=== PATIENT | female | born 1980 | race Caucasian/White ===

== ENCOUNTER 2024-12-09 09:46 | Emergency (ER) | payer BC, SELFPAY ==
[2024-12-09 09:47] VITALS: BP 127/86; PULSE 73; RESP 16; TEMP 36; O2SAT 100; BMI 30.2
--- NOTE | 2024-12-09 10:26 | CT_ITS ---
PROCEDURE: ABDOMEN/PELVIS WITHOUT CONT 12/09/2024 REASON FOR EXAM: KIDNEY STONE Right-sided flank pain. TECHNIQUE: ABDOMEN/PELVIS WITHOUT CONT Noncontrast technique limits evaluation of the abdominal and pelvic viscera. Coronal and Sagittal reconstruction series were provided. One or more dose reduction techniques were used (e.g., Automated exposure control, adjustment of the mA and/or kV according to patient size, use of iterative reconstruction technique). RADIATION DOSE SUMMARY: CTDlvol: 9.41 mGy DLP: 453.87 mGycm COMPARISON: None FINDINGS: Lung bases: Mild dependent atelectasis Liver: Normal size. No obvious mass. Gallbladder: Unremarkable Spleen: Normal size. Pancreas: Normal size. No surrounding inflammation. Adrenals: Adrenal glands are unremarkable. Kidneys: Tiny nonobstructive right intrarenal calculi. No evidence of hydronephrosis. No obstructive uropathy is seen at this time. Bladder: Unremarkable Reproductive Organs: Unremarkable Bowel: Unremarkable Appendix: Unremarkable Lymph nodes: Unremarkable. Vasculature: The abdominal aorta and IVC contours are normal. Noncontrast technique limits evaluation. Peritoneum / Retroperitoneum: Unremarkable Bones: Unremarkable CT/Abdomen/Pelvis without Cont IMPRESSION: Tiny nonobstructive right intrarenal calculi. No obstructive uropathy is seen at this time. Reading Location: [id number]
--- NOTE | 2024-12-09 10:56 | EX.ED.DYSGE1 ---
HPI History of Present Illness Chief Complaint: Flank Pain Narrative Narrative: 44-year-old female who denies significant past medical history presents with 1 to 2 weeks of right flank pain. She thought maybe she had pulled a muscle and has been taking NSAIDs and meloxicam without relief. She states she gets pain in the right flank and right back if she sneezes or tries to breathe too deeply. She denies any DVT or PE risk factors. No fevers or chills, no cough. No exacerbating or alleviating factors. It is not worse with food. She describes it as both dull and achy and sharp and stabbing at times. It has been relatively constant over the last few weeks, with periods of increasing pain, especially at night. She and her state that they went to urgent care today and were told to come to the emergency department for further evaluation with concern for pulmonary embolism or gallbladder pathology, or kidney stone. Patient denies any dysuria or hematuria, no dark urine, no problems with bowel movements. PFSH PFS Home Medications ?Medication ?Instructions ?Recorded ?Last Taken ?Type ascorbic acid (vitamin C) 500 mg 500 mg PO DAILY 12/09/24 12/08/24 History tablet,extended release (C-500) cetirizine 10 mg tablet (24Hour 10 mg PO DAILY PRN allergy symptoms 12/09/24 12/08/24 History Allergy) cyclobenzaprine 10 mg tablet 10 mg PO TID PRN Muscle Spasm #20 12/09/24 Unknown Rx TABLETS ibuprofen 200 mg tablet (Advil) 400 mg PO Q6H PRN fever or pain 12/09/24 12/08/24 History meloxicam 7.5 mg tablet 7.5 mg PO DAILY 12/09/24 12/08/24 History amiwzmlw-nrj-qlrnc acid 200 1 tab PO DAILY 12/09/24 12/08/24 History mcg-collagen, hydrolyzed 25 mg chew tablet (Women's Multivitamin with Collagen) naproxen 500 mg tablet (Naprosyn) 500 mg PO BID PRN pain #20 tabs 12/09/24 Unknown Rx sumatriptan succinate 25 mg tablet 25 mg PO Q2H PRN migraine headache 12/09/24 Unknown History (Imitrex) Allergy/AdvReac Type Severity Reaction Status Date / Time No Known Allergies Allergy Verified 12/09/24 09:48 Social History Smoking Status: Never smoker ROS ROS ED ROS Narrative Review of systems positive for right-sided flank pain. Worse with sneezing or very deep breathing. No DVT or PE risk factors. No chest pain or shortness of breath. No nausea or vomiting, no dysuria or hematuria, no problems with bowel movements. EXAM Physical Exam Narrative Exam Narrative: Afebrile. Vital signs noted. Nontoxic-appearing. Cardiovascular examination feels a regular rate and rhythm. Lungs are clear to auscultation bilaterally. Abdomen is soft and nontender without guarding or rebound. Negative Young sign. Positive bowel sounds. No CVA tenderness to percussion bilaterally. Neurological examination nonfocal, nonlateralizing. No appreciable pedal edema bilaterally. Const Vital Signs: 12/09/24 09:47 12/09/24 11:07 Temperature 96.8 F L Temperature Source Temporal Pulse Rate 73 64 Respiratory Rate 16 16 Blood Pressure 127/86 H 107/74 Blood Pressure Mean 99 85 Pulse Ox 100 100 Oxygen Delivery Method Room Air Room Air MDM MDM MDM Narrative Medical decision making narrative: The differential diagnosis does include but not limited to acute cholecystitis versus pancreatitis versus musculoskeletal flank pain versus ureterolithiasis versus ureteral colic versus pyelonephritis. I have low suspicion for pulmonary embolism. She is nontachycardic, pulse ox 100% on room air. Afebrile. PERC negative. Comprehensive workup was pursued. She was administered morphine and ondansetron for analgesia and comprehensive workup pursued. I do feel that she merits CT imaging for her right sided flank pain with concern for ureterolithiasis. I reviewed her laboratory work and she has normal white count of 10.2 with hemoglobin normal at 14.2, hematocrit 41.4, platelet count normal at 387. BMP is grossly unremarkable except for 0.67 creatinine, slightly low. LFTs are grossly unremarkable. Lipase normal at 45 so I have low suspicion for pancreatitis. Serum negative. Urinalysis negative for infection or blood. I reviewed the radiology report of the CT of the abdomen and pelvis. Gallbladder is unremarkable. There is small, punctate renal stone, but no obstructive uropathy. CT is otherwise unremarkable without acute pathology. At this point in time, I am unsure of the cause of her right flank pain, it may be more musculoskeletal in nature. I feel she can be discharged to follow-up. She was written prescriptions for naproxen and Flexeril and she should follow-up with her primary care provider. Return instructions to the emergency department were reviewed. Disposition is discharged home in stable condition. History & Record Review Discussion w/independent historian: Patient and Family () Additional record(s) reviewed:: No prior records (No prior ED visits.) Lab Data Attestation: I reviewed the patient's lab results. Labs: Laboratory Results - last 24 hr 12/09/24 12/09/24 11:03 11:05 WBC 10.2 RBC 4.76 Hgb 14.2 Hct 41.4 MCV 87.0 MCH 29.8 MCHC 34.3 RDW Std Deviation 38.3 RDW Coeff of Sherri 12.0 Plt Count 387 MPV 9.3 Immature Gran % (Auto) 0.400 Neut % (Auto) 76.4 H Lymph % (Auto) 14.9 L [place] % (Auto) 6.2 Eos % (Auto) 1.5 Baso % (Auto) 0.6 Absolute Neuts (auto) 7.8 H Absolute Lymphs (auto) 1.52 Nucleated RBC % 0 Sodium 138 Potassium 4.1 Chloride 105 Carbon Dioxide 23.2 Anion Gap 10 BUN 13 Creatinine 0.67 L Estim Creat Clear Calc 116.08 Est GFR (MDRD) Non-Af 112 BUN/Creatinine Ratio 19.3 Glucose 90 Calcium 9.8 Total Bilirubin 0.29 AST 14 ALT 13 Alkaline Phosphatase 67 Total Protein 7.6 Albumin 4.6 Globulin 3.1 Albumin/Globulin Ratio 1.5 Lipase 45 Serum , Qual NEGATIVE Urine Color Yellow Urine Clarity Clear Urine pH 7.0 Ur Specific [place] 1.015 Urine Protein 15 H Urine Glucose (UA) Normal Urine Ketones Negative Urine Occult Blood 10 H Urine Nitrite Negative Urine Bilirubin Negative Urine Urobilinogen Normal Ur Leukocyte Esterase Negative Urine RBC 0 SEEN Urine WBC 0 SEEN Ur Squamous Epith Cells 0-5 SEEN Urine Bacteria 0 SEEN Urine Mucus 0 SEEN Radiography Diagnostic Testing: Clinical Impression(s) from Imaging Studies Abdomen/Pelvis CT 12/09/24 10:26 IMPRESSION: Tiny nonobstructive right intrarenal calculi. No obstructive uropathy is seen at this time. Reading Location: [id number] Discharge Plan Triage Chief Complaint: Flank Pain ED Provider: Rohan Meyer Dx/Rx/DC Orders Clinical Impression: Right flank pain, Pain, Renal stone Instructions: ED Flank Pain with Uncertain Cause, ED Pain, Acute, Uncertain Cause Prescriptions: New naproxen [Naprosyn] 500 mg tablet 500 mg PO BID PRN (Reason: pain) Qty: 20 0RF cyclobenzaprine 10 mg tablet 10 mg PO TID PRN (Reason: Muscle Spasm) Qty: 20 0RF No Action cetirizine [24Hour Allergy] 10 mg tablet 10 mg PO DAILY PRN (Reason: allergy symptoms) ascorbic acid (vitamin C) [C-500] 500 mg tablet extended release 500 mg PO DAILY Women's Multivitamin Collagen 200 mcg- 25 mg tablet,chewable 1 tab PO DAILY meloxicam 7.5 mg tablet 7.5 mg PO DAILY ibuprofen [Advil] 200 mg tablet 400 mg PO Q6H PRN (Reason: fever or pain) sumatriptan succinate [Imitrex] 25 mg tablet 25 mg PO Q2H PRN (Reason: migraine headache) Rx Instructions: do not exceed 8 doses per 24 hrs Primary Care Provider: Mary Michele NP Referrals: Mary Michele [employer]ICE [employer]SEMBLER, [facility] [Primary Care Provider] - 3-5 Days if not improving Activity Restrictions/Additional Instructions: Medication as directed for pain. Return with increased pain, fever, increased difficulty breathing, new or worsening symptoms. Print Language: Malagasy Disposition Disposition: Home, Self Care
[2024-12-09 11:07] VITALS: BP 107/74; PULSE 64; RESP 16; O2SAT 100
[2024-12-09 11:12] LABS: Hematocrit 41.4 % (37-47); Hemoglobin 14.2 g/dL (12.0-15.0); Immature Granulocytes Count 0.040 X10^3/uL (0.0-0.0); Mean Corp Hgb Conc 34.3 g/dL (32-36); Mean Corpuscular Volume 87.0 fL (81-99); Mean Platelet Vol. 9.3 fl (6.2-12.0); NRBC Flagged by Analyzer 0 % (0-5); Platelet Count 387 K/mm3 (150-450); RBC Distribution Width CV 12.0 % (11.6-14.6); RBC Distribution Width SD 38.3 fl (35.1-43.9); Red Blood Count 4.76 M/mm3 (4.2-5.4); White Blood Count 10.2 K/mm3 (4.4-11.0)
[2024-12-09 11:13] LABS: Mucous, Urine 0 SEEN /hpf (<or=2+); Red Blood Cells-Urine 0 SEEN /hpf (0-5)
[2024-12-09 11:15] LABS: Color, Urine Yellow (Yellow); Glucose, Dipstick Normal (Normal); Ketone-Dipstick Negative (Negative); Leukocyte Esterase-Dipstick Negative /ul (Negative); Nitrite-Dipstick Negative (Negative); Occult Blood-Urine 10 /ul (Negative); Protein-Dipstick 15 mg/dl (Negative); Specific Gravity, Urine 1.015 (1.002-1.030); Urine Bilirubin Dipstick Negative (Negative)
[2024-12-09 11:20] LABS: Internal QC Validated? YES +Cl - CLEAR BKGD; Pregnancy, Serum, hCG Quali. NEGATIVE Negative; Record Kit Lot#, Serum Preg. 962302
[2024-12-09 11:22] LABS: Squamous Epithelial Cells - UA 0-5 SEEN /hpf (5-10)
[2024-12-09 11:42] LABS: AST(SGOT) 14 U/L (<=31); Alanine Aminotransfer ALT/SGPT 13 U/L (<=34); Albumin, Serum 4.6 g/dL (3.5-5.0); Alkaline Phosphatase 67 U/L (35-104); Anion Gap 10 (5-15); BUN 13 mg/dL (4-19); BUN/Creat Ratio 19.3 RATIO (10-20); Calcium,Total 9.8 mg/dL (7.6-11.0); Carbon Dioxide 23.2 mmol/L (21.0-32.0); Chloride 105 mmol/L (98-108); Estimated Creatinine Clearance 116.08 ml/min (50-250); Globulin 3.1 g/dL (2.2-4.2); Glucose 90 mg/dL (70-99); Lipase 45 U/L (13-75); Potassium 4.1 mmol/L (3.3-5.1)
== END 2024-12-09 13:02 | disposition home or self-care (01) ==
PROVIDERS: Emergency Provider Emergency Medicine; PCP Internal Medicine; Visit Provider Emergency Medicine
DX: R10.9 Unspecified abdominal pain (principal); N20.0 Calculus of kidney
CPT/HCPCS: 74176; 80053; 81001; 83690; 84703; 85025; 96374; 96375; 96376; 99284; A4216; J2405